=== PATIENT | female | born 1970 | race Caucasian/White ===

== ENCOUNTER → 2018-06-05 10:33 | Outpatient (REF) | payer MEDICAID, SELFPAY ==
[2018-06-05 13:50] LABS: Basophils % 0.6 % (0.1-2.0); Eosinophils # 0.2 K/mm3 (0.0-0.4); Hematocrit 46.8 % (37.0-47.0); Hemoglobin 14.9 g/dL (12.2-16.2); Lymphocytes # 1.9 K/mm3 (0.7-4.5); Lymphocytes % 25.5 K/mm3 (10-50); Mean Corpuscular HGB Conc 31.8 g/dL (31.8-35.4); Mean Corpuscular Hemoglobin 26.9 pg (27.0-31.2); Mean Corpuscular Volume 84.6 fl (81-99); Monocytes # 0.3 K/mm3 (0.1-1.0); Monocytes % 4.2 % (1.7-9.3); Neutrophils # 5.1 K/mm3 (1.8-7.8); Neutrophils % 67.8 % (37.0-80.0); Platelet Count 345 K/mm3 (142-424); Red Blood Count 5.53 M/mm3 (4.20-5.40); Red Cell Distribution Width 13.4 % (11.5-17.5); White Blood Count 7.5 K/mm3 (4.8-10.8)
[2018-06-05 15:10] LABS: Erythrocyte Sedimentation Rate 27 mm/hr (0-20)
[2018-06-05 15:52] LABS: Alanine Aminotransferase 35 U/L (12-78); Albumin Level 3.6 gm/dL (3.4-5.0); Albumin/Globulin Ratio 0.9 (1.1-1.8); Alkaline Phosphatase 97 U/L (46-116); Anion Gap 13.5 mEq/L (5-15); Aspartate Amino Transferase 16 U/L (15-37); Bilirubin,Total 0.5 mg/dL (0.2-1.0); Blood Urea Nitrogen 9 mg/dL (7-18); Calcium 9.1 mg/dL (8.5-10.1); Carbon Dioxide 28 mmol/L (21.0-32.0); Chloride 101 mmol/L (98-107); Cholesterol 303 mg/dL (140-200); Creatinine,Serum 0.52 mg/dL (0.55-1.02); Estimated Glomerular Filt Rate 126 ml/min (>60); Free T4 (Free Thyroxine) 1.08 ng/dl (0.76-1.46); GFR (African American) 153 ML/MIN (>60); Globulin 3.9 gm/dl (1.3-3.2); Glucose 306 mg/dL (74-106); HDL Cholesterol 43 mg/dL (29-89); LDL Cholesterol 212 mg/dL (0-130); Potassium 4.5 mmoL/L (3.5-5.1); Sodium 138 mmol/L (136-145); Thyroid Stimulating Hormone 0.99 uIU/ml (0.358-3.740); Total Protein,Serum 7.5 gm/dL (6.4-8.2); Triglycerides 238 mg/dL (30-200); VLDL Cholesterol 48 mg/dL (0-40)
[2018-06-05 15:59] LABS: Hemoglobin A1C 10.7 % (0.0-7.0)
[2018-06-06 10:26] LABS: Microalbumin, Urine 113.6 ug/mL (Not Estab.)
[2018-06-08 06:34] LABS: Vitamin D 25 Hydroxy 14.3 ng/mL (30.0-100.0)
== END ==
LOC: LAB 10:33
PROVIDERS: Visit Provider Emergency Medicine
DX: E11.9 Type 2 diabetes mellitus without complications (principal); E11.69 Type 2 diabetes mellitus with other specified complication; E78.5 Hyperlipidemia, unspecified; I10 Essential (primary) hypertension
CPT/HCPCS: 80053; 80061; 82043; 82570; 82652; 83036; 84439; 84443; 85025; 85651

== ENCOUNTER → 2018-08-16 13:43 | Outpatient (POV) | payer MEDICAID, SELFPAY | PROVIDERS: Family Provider Family Medicine; PCP Emergency Medicine; Visit Provider Internal Medicine Nephrology | DX: Z00.00 Encounter for general adult medical examination without abnormal findings (principal) ==

== ENCOUNTER → 2018-09-10 13:43 | Outpatient (CLI) | payer MEDICAID, SELFPAY ==
[2018-09-10 14:47] LABS: Erythrocyte Sedimentation Rate 0 mm/hr (0-20)
[2018-09-10 16:05] LABS: Hemoglobin A1C 11.2 % (0.0-7.0)
== END ==
PROVIDERS: PCP Nurse Practitioner Family; Visit Provider Nurse Practitioner Family
DX: M79.7 Fibromyalgia (principal); E11.8 Type 2 diabetes mellitus with unspecified complications
CPT/HCPCS: 83036; 85651

== ENCOUNTER → 2018-09-20 08:45 | Outpatient (CLI) | payer MEDICAID, SELFPAY | PROVIDERS: PCP Emergency Medicine; Visit Provider Nurse Practitioner Family | DX: Z71.3 Dietary counseling and surveillance (principal); E11.8 Type 2 diabetes mellitus with unspecified complications | CPT/HCPCS: 97802 ==

== ENCOUNTER → 2018-11-16 16:13 | Outpatient (CLI) | payer MEDICAID, SELFPAY ==
[2018-11-16 20:54] LABS: Alanine Aminotransferase 51 U/L (12-78); Albumin Level 3.7 gm/dL (3.4-5.0); Albumin/Globulin Ratio 0.9 (1.1-1.8); Alkaline Phosphatase 123 U/L (46-116); Anion Gap 12.9 mEq/L (5-15); Aspartate Amino Transferase 25 U/L (15-37); Bilirubin,Total 0.3 mg/dL (0.2-1.0); Blood Urea Nitrogen 11 mg/dL (7-18); Calcium 9.6 mg/dL (8.5-10.1); Carbon Dioxide 28 mmol/L (21.0-32.0); Chloride 100 mmol/L (98-107); Creatinine,Serum 0.71 mg/dL (0.55-1.02); Estimated Glomerular Filt Rate 88 ml/min (>60); GFR (African American) 106 ML/MIN (>60); Globulin 3.9 gm/dl (1.3-3.2); Glucose 264 mg/dL (74-106); Potassium 4.9 mmoL/L (3.5-5.1); Sodium 136 mmol/L (136-145); Total Protein,Serum 7.6 gm/dL (6.4-8.2)
[2018-11-16 21:34] LABS: Hemoglobin A1C 10.3 % (0.0-7.0)
== END ==
PROVIDERS: Visit Provider Nurse Practitioner Family
DX: L02.91 Cutaneous abscess, unspecified (principal); E11.69 Type 2 diabetes mellitus with other specified complication; E78.5 Hyperlipidemia, unspecified
CPT/HCPCS: 80053; 83036; 84681; 87070; 87077; 87186; 87205

== ENCOUNTER 2019-04-09 23:16 | Emergency (ER) | payer MEDICAID, SELFPAY ==
[2019-04-09 23:29] VITALS: BP 144/90; PULSE 76; RESP 18; TEMP 37.1; O2SAT 99; BMI 32.8
--- NOTE | 2019-04-09 23:35 | XR_ITS ---
XR ankle LT min 3V HISTORY: ITS.REASON: pain ORDERING PHYSICIAN: Jayson Hallman MD PATIENT AGE: 48 years Comparison: None FINDINGS: No fracture or dislocation. No lytic or blastic change. There is normal mineralization.. There are mild degenerative changes IMPRESSION: No acute finding
--- NOTE | 2019-04-09 23:41 | HMH.EDLOEX ---
ED Disposition Clinical Impression: Ankle sprain and strain Disposition: Home, Self-Care Condition on Discharge: Good Instructions: DI for Ankle Sprain Additional Instructions: no wt bearing and ice and see pcp and podiatry Referrals: Mitchell Horner [Primary Care Provider] - Kimi Humphrey DPM [Staff Physician] - - Critical Care Critical Care Time: No Attestation: On 04/09/19, the high probability of a clinically significant, sudden or life threatening deterioration of the following system(s) required my full and direct attention, intervention and personal management. The time I documented below is in addition to time spent performing reported procedures but includes the following listed in this critical care notation. Medical Decision Making - Medical Records Medical records reviewed: Yes: I reviewed the patient's medical records. - Paco Inquiry Pt receiving controlled substance: No Vital Signs: 04/09/19 23:29 Temperature 98.7 F Temperature Source Oral Pulse Rate [Right Radial] 76 Respiratory Rate 18 Blood Pressure [Right Arm] 144/90 H Blood Pressure Mean [Right Arm] 108 02 Sat by Pulse Oximetry 99 Orders (Tests/Meds): ED MEDICATIONS Discontinued Medications Generic Name Dose Route Start Last Admin Trade Name Freq PRN Reason Stop Dose Admin Ibuprofen 800 mg 04/09/19 23:35 Motrin 400mg Tablet PO 04/09/19 23:36 ONCE ONE ORDERS Category Date Time Status XR ankle LT min 3V Stat Exams 04/09/19 23:35 Taken - Radiology Data #1 Image(s): Ankle Image Reviewed: Yes I reviewed the patient's radiology image Preliminary Findings: No Fracture Seen Lower Extremity Injury HPI - General Chief Complaint: Extremity Injury, Lower Stated Complaint: AO 04/09/19 22:00 injury left ankle Time Seen by Provider: 04/09/19 23:40 Mode of Arrival: Wheelchair Source of Information: Patient Limitations: Physical Limitations Description of Symptoms (Recalled from ER Triage Doc. by RN): approx 1 hour ago patient fell and is now having left ankle pain - History of Present Illness HPI Narrative: acute eversion injury lt ankle with popping and swelling and pain complaint: ankle injury Onset (ago): hour(s) Injury: Left: ankle Type of Injury: eversion Place: home Severity: moderate Context: walking Associated symptoms: snap/pop sensation, swelling, unable to bear weight Other symptoms: none - Related Data Previous Rx's Medication Instructions Recorded blood sugar diagnostic strips See Dose Instructions .ROUTE 06/05/18 .MEDSUPPLY #100 each blood-glucose meter See Dose Instructions .ROUTE 06/05/18 .MEDSUPPLY #1 each cholecalciferol (vitamin D3) 1,000 1,000 unit PO DAILY 90 Days #90 cap 06/10/18 unit capsule ergocalciferol (vitamin D2) 50,000 50,000 unit PO QWEEK 90 Days #14 06/10/18 unit capsule cap amitriptyline 10 mg tablet 10 mg PO QHS #30 tab 11/16/18 atorvastatin 20 mg tablet 20 mg PO DAILY #90 tab 11/16/18 cephalexin 500 mg capsule 500 mg PO Q12H 10 Days #20 cap 11/16/18 metformin 500 mg tablet 1,000 mg PO BID #180 tab 11/16/18 sulfamethoxazole 800 1 tab PO BID 10 Days #20 tab 11/16/18 mg-trimethoprim 160 mg tablet topiramate 50 mg tablet 50 mg PO BID #60 tab 11/16/18 glipizide ER 10 mg tablet, 10 mg PO DAILY #90 tab 11/21/18 extended release 24 hr lisinopril 2.5 mg tablet See Rx Instructions .ROUTE 03/15/19 .COMPLEX #90 unspecified Allergies Allergy/AdvReac Type Severity Reaction Status Date / Time sumatriptan [From IMITREX] Allergy Mild Verified 04/09/19 23:33 [facility] History - Hepatitis A Screen Drug use history?: No High risk sexual behaviors?: No History of sexually transmitted infection?: No Currently employed?: No Childcare worker?: No Do you have indoor plumbing?: Yes Do you have electricity?: Yes Attestation statement:: This patient has been screened for Hepatitis A risk factors. I have reviewed the patient's past medical his
[2019-04-09 23:56] VITALS: BP 144/90; PULSE 76; RESP 18; TEMP 37.1; O2SAT 99
== END 2019-04-09 23:57 | disposition home or self-care (01) ==
PROVIDERS: Emergency Provider Emergency Medicine; PCP Internal Medicine
DX: S93.402A Sprain of unspecified ligament of left ankle, initial encounter (principal); W01.0XXA Fall on same level from slipping, tripping and stumbling without subsequent striking against object, initial encounter; Y92.019 Unspecified place in single-family (private) house as the place of occurrence of the external cause; E11.9 Type 2 diabetes mellitus without complications; K21.9 Gastro-esophageal reflux disease without esophagitis; I10 Essential (primary) hypertension; E78.5 Hyperlipidemia, unspecified
CPT/HCPCS: 73610; 99283

== ENCOUNTER → 2019-05-13 12:04 | Outpatient (CLI) | payer MEDICAID, SELFPAY ==
--- NOTE | 2019-05-13 12:09 | XR_ITS ---
XR ankle wt bearing LT min 3V HISTORY: ITS.REASON: Ankle Sprain ORDERING PHYSICIAN: Kimi Humphrey DPM PATIENT AGE: 48 years Comparison: None FINDINGS: No fracture or dislocation. No lytic or blastic change. There is normal mineralization.. The joint spaces are well-preserved. There are hypertrophic changes distal aspect of the medial malleolus. The talar dome has an unremarkable appearance. IMPRESSION: Mild degenerative changes, no acute finding
--- NOTE | 2019-05-13 12:09 | XR_ITS ---
XR foot wt bearing LT 3V HISTORY: Foot pain ITS.REASON: ankle sprain ORDERING PHYSICIAN: Kimi Humphrey DPM PATIENT AGE: 48 years COMPARISON: None FINDINGS: No fracture or dislocation. No lytic or blastic change. There is normal mineralization.. The joint spaces are well-preserved. No significant degenerative/arthritic changes. No erosive changes evident. Mildly prominent calcaneal spur is present at 9 mm IMPRESSION: No acute finding
--- NOTE | 2019-05-13 12:09 | XR_ITS ---
XR ankle wt bearing RT min 3V HISTORY: Pain and weakness ITS.REASON: ankle sprain ORDERING PHYSICIAN: Kimi Humphrey DPM PATIENT AGE: 48 years Comparison: None FINDINGS: No fracture or dislocation. No lytic or blastic change. There is normal mineralization.. The joint spaces are well-preserved. No significant degenerative/arthritic changes. No erosive changes evident. There are minimal hypertrophic changes of the distal aspect of the fibula and the medial malleoli region. The joint space is well preserved of the ankle. The talar dome has an unremarkable appearance. IMPRESSION: Minimal hypertrophic changes of the distal fibula and medial malleoli region otherwise negative
--- NOTE | 2019-05-13 12:09 | XR_ITS ---
XR foot wt bearing RT 3V HISTORY: Pain ITS.REASON: ankle sprain ORDERING PHYSICIAN: Kimi Humphrey DPM PATIENT AGE: 48 years COMPARISON: None FINDINGS: Mild hypertrophic changes are present at the distal aspect of the first metatarsal. No fracture or dislocation. No lytic or blastic change. There is a prominent calcaneal spur 12 mm. There is a small triangular shaped opacity along the plantar and lateral aspect of the fifth metatarsal head and system with a piece of glass within the soft tissues. No other significant anomalies are evident. IMPRESSION: 1. Foreign body along the head of the fifth metatarsal which has the appearance of T6 of glass measuring 6 mm 2. Mild hypertrophic changes of the distal aspect of the first metatarsal
== END ==
PROVIDERS: PCP Internal Medicine; Visit Provider Podiatrist
DX: S93.402A Sprain of unspecified ligament of left ankle, initial encounter (principal); S96.919A Strain of unspecified muscle and tendon at ankle and foot level, unspecified foot, initial encounter
CPT/HCPCS: 73610; 73630

== ENCOUNTER 2019-05-20 08:00 | Outpatient (RCR) | payer MEDICAID, SELFPAY ==
--- NOTE | 2019-04-23 10:47 | HMH.PTOPEV ---
PT Outpatient Evaluation Rehab PT Outpatient Evaluation Start: 04/23/19 09:42 Freq: Status: Active Protocol: Document 04/23/19 09:43 CESARMARISA (Rec: 04/23/19 10:40 JACQUES [id number]) Electronically Signed By Carlos Rock PT 04/23/19 09:43 Outpatient Therapy Subjective History Subjective History This is the initial Physical Therapy evaluation for Teagan Ramirez. Pt is a 48 y/o female referred to PT s/p L ankle sprain. Pt reports ~ 2 weeks ago she was getting out of her van and stepped on a rock. Pt reports the rock rolled causing her to roll her ankle into an inversion sprain. Pt reports she felt and heard a pop and was unable to weight bear on that side. Pt reports DPM placed her in CAM boot and told jacek to use crutches for 2 weeks, wean off crutches and stay in boot for another 2 weeks. Chief Complaint Pain,Swelling,Gives out/ Unstable Symptom Type Ache,Throb,Sharp,Dull,Stabbing Symptoms Relieved By Rest/Positioning,Heat Symptoms Aggravated By Standing,Physical Activity, Walking Prior Functional Limitations None Current Functional Limitations Housework,Driving,Sleeping, Standing,Squatting,Recreation Activity,Walking,Stairs Symptom Description Constant but Variable Level of pain today (0-10) 3 Pain scale - at its best (0-10) 2 Pain scale - at its worst (0-10) 5 Ankle/Foot Eval Gait Observation General Gait Pattern Observation Antalgic Gait,Decrease Weight Bear (L) Assistive Device Ambulation Assistive Device Axillary Crutches Palpation Tenderness left Ankle/Foot Palpation Findings Tenderness Ankle/Foot Palpation Overall Comment TTP along sinus tarsi, ATF, CF , and medial Maleolus ATF TTP positive CF TTP positive ROM Ankle/Foot Dorsiflexion w/Knee Extended 10 Active Range Motion (degrees) Ankle/Foot Plantar Flexion Active Range 50 of Motion (degrees) Ankle/Foot Eversion Active Range of 20 Motion (degrees) Ankle/Foot Inversion Active Range of 30 Motion (degrees) Ankle/Foot ROM Limitations Pain MMT Ankle Dorsiflexion Streng
== END 2019-05-20 08:05 | disposition home or self-care (01) ==
LOC: PT 08:00
PROVIDERS: Visit Provider Podiatrist
DX: S93.402A Sprain of unspecified ligament of left ankle, initial encounter (principal); S96.912A Strain of unspecified muscle and tendon at ankle and foot level, left foot, initial encounter
CPT/HCPCS: 97033; 97035; 97110; 97163

== ENCOUNTER → 2019-06-19 10:06 | Outpatient (CLI) | payer MEDICAID, SELFPAY ==
--- NOTE | 2019-06-19 10:09 | XR_ITS ---
XR ankle wt bearing LT min 3V HISTORY: Posttraumatic pain ITS.REASON: ankle injury ORDERING PHYSICIAN: Kimi Humphrey DPM PATIENT AGE: 48 years Comparison: None FINDINGS: No fracture or dislocation. No lytic or blastic change. There is normal mineralization.. Osteoarthritic changes are present involving the future aspect of the ankle joint and the tibiotalar region with minimal hypertrophy along the neck of the talus. There is a small calcaneal spur. IMPRESSION: Mild osteoarthritis of the ankle
--- NOTE | 2019-06-19 10:09 | XR_ITS ---
XR foot wt bearing LT 3V HISTORY: ITS.REASON: pain ORDERING PHYSICIAN: Kimi Humphrey DPM PATIENT AGE: 48 years COMPARISON: None FINDINGS: No fracture or dislocation. No lytic or blastic change. There is normal mineralization.. Mild osteoarthritic change of the first metatarsal phalangeal joint. Mildly prominent calcaneal spur. Normal alignment. IMPRESSION: Mild osteoarthritic change first MTP joint
--- NOTE | 2019-06-19 10:09 | XR_ITS ---
XR ankle wt bearing RT min 3V HISTORY: Pain following injury ITS.REASON: ankle injury ORDERING PHYSICIAN: Kimi Humphrey DPM PATIENT AGE: 48 years Comparison: None FINDINGS: No fracture or dislocation. No lytic or blastic change. There is normal mineralization.. There are mild osteoarthritic changes of the talonavicular joint. Prominent calcaneal spur is noted IMPRESSION: No acute finding
--- NOTE | 2019-06-19 10:09 | XR_ITS ---
XR foot wt bearing RT 3V HISTORY: ITS.REASON: pain ORDERING PHYSICIAN: Kimi Humphrey DPM PATIENT AGE: 48 years COMPARISON: None FINDINGS: There are mild osteoarthritic changes of the first metatarsal phalangeal joint. A linear thin area of increased density is present along the lateral aspect of the head of the fifth metatarsal measuring 6 mm. This is within the soft tissues as suspicious for a shard of glass. There is an additional 2 mm opacity just distal to this region. A faint density is present between the head of the second and third metatarsals posterior lentiform body. There is normal alignment. Mild osteoarthritic changes are present at the talonavicular joint and there is a prominent calcaneal spur. IMPRESSION: 1. Degenerative changes. 2. Foreign body along the lateral distal aspect of the fifth metatarsal with other small densities which could represent soft tissue calcification or other areas of foreign body as described above
== END ==
PROVIDERS: PCP Internal Medicine; Visit Provider Podiatrist
DX: S93.402A Sprain of unspecified ligament of left ankle, initial encounter (principal); M19.071 Primary osteoarthritis, right ankle and foot; M19.072 Primary osteoarthritis, left ankle and foot
CPT/HCPCS: 73610; 73630